=== PATIENT | male | born 1965 | race American Indian/Alaskan Native ===

== ENCOUNTER 2017-08-25 10:46 | Inpatient (IN) | payer BC ==
--- NOTE | 2017-08-24 10:15 | Anesthesia Consultation ---
Anesthesia Consult and Med Hx Date of service: 08/25/17 - Airway Anesthetic Teeth Evaluation: Good ROM Head & Neck: Adequate Mental/Hyoid Distance: Adequate Mallampati Class: Class II Intubation Access Assessment: Good - Pulmonary Exam CTA: Yes - Cardiac Exam Cardiac Exam: No Murmur - Pre-Operative Health Status ASA Pre-Surgery Classification: ASA2 Proposed Anesthetic Plan: General - Pulmonary Hx Smoking: Yes (CIGARS/CIGARETTES SOCIAL SMOKER) Hx Sleep Apnea: No (ENID PRE SCREEN LOW RISK) - Cardiovascular System Hx Hypertension: No - Other Systems Hx Cancer: No
[2017-08-24 10:41] LABS: Basophils % (Auto) 0.1 % (0.0-1.8); Eosinophils % (Auto) 1.2 % (0.0-4.3); Hematocrit 42.1 % (35.5-45.6); Hemoglobin 14.5 gm/dl (11.8-15.2); Mean Corpuscular HGB Conc 34 % (32-34); Mean Corpuscular Hemoglobin 31 pg (28-32); Mean Corpuscular Volume 89 fl (84-94); Platelet Count 229 K/mm3 (140-440); Red Blood Count 4.74 M/mm3 (3.65-5.03); Red Cell Distribution Width 13.6 % (13.2-15.2)
[2017-08-24 10:51] LABS: Partial Thromboplastin Time 36.4 Sec. (24.2-36.6)
[2017-08-24 11:00] LABS: Alanine Aminotransferase 16 units/L (7-56); Albumin 4.3 g/dL (3.9-5); Albumin/Globulin Ratio 1.5 %; Alkaline Phosphatase 52 units/L (35-129); Anion Gap 16 mmol/L; BUN/Creatinine Ratio 20; Blood Urea Nitrogen 14 mg/dL (9-20); Calcium 8.9 mg/dL (8.4-10.2); Carbon Dioxide 25 mmol/L (22-30); Chloride 106.8 mmol/L (98-107); Glucose 134 mg/dL (75-100); Potassium 4.1 mmol/L (3.6-5.0); Sodium 144 mmol/L (137-145); Total Protein 7.2 g/dL (6.3-8.2)
[~2017-08-25 10:46] MED LIST: ANCEF/STERILE WATER 2 GM/20 ML IV NR; LACTATED RINGERS 1,000 ML IV SCH; PEPCID PO NR; VERSED IV NR
[2017-08-25] MEDS ORDERED: OMNIPAQUE (300 MG) IR ONE (11:25)
[2017-08-25] MEDS ORDERED: MORPHINE IV PRN ×2 (13:10→14:09)
[2017-08-25] MEDS ORDERED: ZOFRAN IV PRN ×2 (13:10→14:09)
[2017-08-25] MEDS ORDERED: PERCOCET 5/325 PO PRN (13:10)
--- NOTE | 2017-08-25 13:10 | Anesthesia Day of Surgery ---
Anesthesia Day of Surgery - Day of Surgery Patient Examined: Yes Patient H&P Reviewed: Yes Patient is NPO: Yes
[2017-08-25] MEDS ORDERED: XYLOCAINE MPF 2% ONE (13:14)
[2017-08-25] MEDS ORDERED: DIPRIVAN 10 MG/ML IV ONE (13:15)
[2017-08-25] MEDS ORDERED: SUBLIMAZE ONE (13:15)
[2017-08-25] MEDS ORDERED: LACTATED RINGERS 1,000 ML ONE (13:40)
--- NOTE | 2017-08-25 14:02 | Short Stay Summary ---
Short Stay Documentation Date of service: 08/25/17 - History H&P: obtained from office - Allergies and Medications Current Medications: Allergies No Known Allergies Allergy (Verified 08/23/17 14:24) Home Medications Medication Instructions Recorded Confirmed Last Taken Type Dutasteride/Tamsulosin HCl [Mira 1 each PO QDAY 08/23/17 08/25/17 08/24/17 History 0.5-0.4 mg] Tadalafil [Cialis] 5 mg PO QDAY 08/23/17 08/25/17 08/18/17 History Active Medications Cefazolin Sodium (Ancef/Sterile Water 2 Gm/20 Ml) 2 gm IV PREOP NR Stop: 08/25/17 23:59 Famotidine (Pepcid) 20 mg PO PREOP NR Stop: 08/25/17 23:00 Last Admin: 08/25/17 12:00 Dose: 20 mg Lactated Ringer's (Lactated Ringers) 1,000 mls @ 100 mls/hr IV DIRECT ERAN Last Admin: 08/25/17 11:59 Dose: 100 mls/hr Midazolam HCl (Versed) 2 mg IV PREOP NR Stop: 08/25/17 23:00 Last Admin: 08/25/17 12:00 Dose: 2 mg Morphine Sulfate (Morphine) 2 mg IV Q10MIN PRN PRN Reason: Pain, Moderate (4-6) Stop: 08/25/17 23:59 Ondansetron HCl (Zofran) 4 mg IV ONCE PRN PRN Reason: Nausea And Vomiting Oxycodone/Acetaminophen (Percocet 5/325) 1 tab PO ONCE PRN PRN Reason: Pain, Moderate (4-6) - Brief post op/procedure progress note Date of procedure: 08/25/17 Pre-op diagnosis: BPH Post-op diagnosis: same Procedure: CYSTO, RPG, TURP Anesthesia: GETA Surgeon: TEODORA ARND Estimated blood loss: minimal Pathology: list (PROSTATE CHIPS) Specimen disposition: to lab Condition: stable - Hospital course Hospital course: [facility]IE ON CHART - Disposition Condition at discharge: Stable Disposition: DC-01 TO HOME OR SELFCARE Short Stay Discharge Plan Follow up with: JUAN MARRERO MD [Primary Care Provider] - 7 Days
[2017-08-25] MEDS ORDERED: TORADOL IV PRN (14:09)
[2017-08-25] MEDS ORDERED: NARCAN 0.4 MG/1 ML IV PRN (14:09)
[2017-08-25] MEDS ORDERED: AMBIEN PO PRN (14:09)
[2017-08-25] MEDS ORDERED: NORCO 5/325 PO PRN (14:09)
[2017-08-25] MEDS: ANTILIRIUM IV PRN ×2 (14:12→14:27)
[2017-08-25] MEDS ORDERED: ANTILIRIUM ONE (14:15)
[2017-08-25] MEDS: DILAUDID IV PRN ×2 (14:17→14:25)
[2017-08-25] MEDS ORDERED: DILAUDID ONE (14:18)
--- NOTE | 2017-08-25 14:56 | Operative Report ---
PREOPERATIVE DIAGNOSIS: Benign prostatic hypertrophy. POSTOPERATIVE DIAGNOSIS: Benign prostatic hypertrophy. PROCEDURE: Cystoscopy, bilateral retrograde pyelograms, transurethral resection of the prostate. SURGEON: Abdias Byrne MD ANESTHESIA: General. ESTIMATED BLOOD LOSS: Minimal. FLUIDS: Crystalloid. COMPLICATIONS: No complications. INDICATIONS: This patient is a 52-year-old gentleman with history of BPH. He underwent TURP 15 years ago in [place]. He has been on Mira for several months with no significant improvement of his symptoms. Urodynamic testing revealed a peak flow, flow rate of 4 mL a second. Postvoid residual 0. Bladder capacity 225 mL. It was consistent with obstruction. He agreed to proceed with surgical intervention. DESCRIPTION OF PROCEDURE: The patient was taken to the operative suite, placed in a supine position. After adequate general anesthesia, placed in a dorsal lithotomy position, prepped and draped in a sterile fashion. Pancystourethroscopy was performed with a 22-[place] Storz cystoscope, no acute bladder pathology. His urethra was normal. Prostate revealed trilobar prostatic obstruction in his bladder. No tumors or stones. Both ureteral orifices in normal position at some mild diffuse trabeculation. Bilateral retrograde pyelograms were obtained with an 8-[place] Carmen catheter and 8 mL of contrast that have some mild J-hooking of the distal ureter. No filling defects or obstruction. Next, using a 27-[place] resectoscope and loop with the cutting and coag on 160 and 60, transurethral resection of the prostate was performed in a systematic fashion, taking down the median lobe and the right and left lateral lobes respectively. The patient tolerated the procedure well. Mckoy catheter was placed 24-[place] 3-way was placed with aid of cath guide, irrigated clear. Rectal exam was benign. He was extubated and taken to recovery room. He will be observed overnight and go home on [facility] [place]. JOB# [id number] [facility]
[2017-08-25] MEDS ORDERED: LACTATED RINGERS 1,000 ML IV SCH (15:00)
[2017-08-25] MEDS ORDERED: ANCEF/NS 1 GM/50 ML 1 GM/50 ML BAG IV SCH (15:00)
[2017-08-25] MEDS ORDERED: NACL 0.9% 2,000 ML ONE ×2 (15:08)
[2017-08-25] MEDS ORDERED: NACL 0.9% 1,000 ML IR ONE (18:38)
[2017-08-26] MEDS: ceFAZolin 1 GM in NACL 0.9% 20 ML IV SCH ×2 (03:07→05:05)
[2017-08-26 04:01] LABS: Basophils % (Auto) 0.2 % (0.0-1.8); Eosinophils % (Auto) 1.1 % (0.0-4.3); Hematocrit 38.2 % (35.5-45.6); Hemoglobin 12.9 gm/dl (11.8-15.2); Mean Corpuscular HGB Conc 34 % (32-34); Mean Corpuscular Hemoglobin 30 pg (28-32); Mean Corpuscular Volume 89 fl (84-94); Platelet Count 216 K/mm3 (140-440); Red Blood Count 4.27 M/mm3 (3.65-5.03); Red Cell Distribution Width 13.3 % (13.2-15.2); White Blood Count 13.4 K/mm3 (4.5-11.0)
[2017-08-26 04:18] LABS: BUN/Creatinine Ratio 16; Blood Urea Nitrogen 11 mg/dL (9-20); Calcium 8.4 mg/dL (8.4-10.2); Carbon Dioxide 25 mmol/L (22-30); Glucose 185 mg/dL (75-100)
[2017-08-26 04:19] LABS: Anion Gap 16 mmol/L; Chloride 102.8 mmol/L (98-107); Potassium 3.7 mmol/L (3.6-5.0); Sodium 140 mmol/L (137-145)
[2017-08-26] MEDS: NACL 0.9% IR SCH ×2 (05:45→06:45)
--- NOTE | 2017-08-26 07:16 | Fluoroscopy Report ---
RETROGRADE PYELOGRAM: History: Enlarged prostate, urinary retention. There is adequate filling of the ureters and intrarenal collecting systems with no filling defects or anatomic abnormalities identified. Impression: No abnormality identified.
--- NOTE | 2017-08-26 11:39 | Progress Note ---
Assessment and Plan s/p turp pt seen in am and now [place] held d/c/ home with dale triggers for urgent tx given Subjective Date of service: 08/26/17 Principal diagnosis: no comple bl spams Objective - Constitutional Vitals: Vital Signs - 12hr 08/26/17 08/26/17 08/26/17 00:59 01:16 05:31 Temperature 98.6 F 99.3 F 99.1 F Pulse Rate 91 H 83 82 Respiratory 16 20 20 Rate Blood Pressure 126/72 136/88 Blood Pressure 106/53 [Right] O2 Sat by Pulse 97 95 97 Oximetry 08/26/17 08/26/17 05:32 07:31 Temperature 98.6 F Pulse Rate 85 79 Respiratory 20 Rate Blood Pressure 136/88 136/85 Blood Pressure [Right] O2 Sat by Pulse 97 99 Oximetry General appearance: Present: no acute distress - Respiratory Respiratory effort: normal - Gastrointestinal General gastrointestinal: Present: other ( cath clear w/ small clot) - Labs CBC & Chem 7: 08/26/17 03:16 08/26/17 03:16 Labs: Abnormal lab results 08/26/17 08/26/17 Range/Units 03:16 03:16 WBC 13.4 H (4.5-11.0) K/mm3 Seg Neutrophils % 71.4 H (40.0-70.0) % Seg Neutrophils # 9.6 H (1.8-7.7) K/mm3 Creatinine 0.7 L (0.8-1.5) mg/dL Glucose 185 H (75-100) mg/dL
[2017-08-26 14:29] VITALS: BP 138/84
== END 2017-08-26 16:25 | disposition home or self-care (01) | DRG 714 ==
LOC: OR 10:46 → 3B-SURG 14:09
PROVIDERS: ADMIT Urology; ATTEND Urology
PROC: BT141ZZ Fluoroscopy of Kidneys, Ureters and Bladder using Low Osmolar Contrast (ICD-10-PCS; principal; 2017-08-25)
PROC: 0VT08ZZ Resection of Prostate, Via Natural or Artificial Opening Endoscopic (ICD-10-PCS; 2017-08-25)
DX: N40.1 Benign prostatic hyperplasia with lower urinary tract symptoms (principal); I10 Essential (primary) hypertension; N52.01 Erectile dysfunction due to arterial insufficiency
CPT/HCPCS: 36415; 74420; 80048; 80053; 85025; 85610; 85730; 86850; 86900; 86901; 88305; A4217; J0690; J1170; J2250; J2270; J2405; J2704; J3010; J7120; Q9967